=== PATIENT | male | born 1950 | race Caucasian/White ===

== ENCOUNTER 2018-08-13 01:40 | Emergency (ER) | payer BC, OTHER ==
[~2018-08-13] VITALS: Ht 185.4 cm; Wt 108.0 kg
[2018-08-13] MEDS ORDERED: DIAZEPAM 5 MG (VALIUM) TABLET PO ONE (02:00)
[2018-08-13] MEDS ORDERED: DEXAMETHASONE 4 MG/ML SDV (DECADRON) PO ONE (02:00)
[2018-08-13] MEDS ORDERED: oxyCODONE/APAP 5/325MG (PERCOCET 5) TABLET PO ONE (02:00)
[2018-08-13] MEDS ORDERED: KETOROLAC 60 MG/2 ML VIAL IM ONE (02:00)
--- NOTE | 2018-08-13 02:02 | ED General ---
General Chief Complaint: Back Problems Stated Complaint: BACK/RIGHT LEG PAIN History of Present Illness Date Seen by Provider: Aug 13, 2018 Time Seen by Provider: 01:58 Initial Comments Patient presents emergency department for evaluation of left lumbar paraspinal back pain that has been going on for the past 2 days and has been getting progressively worse. He says the pain radiates down the front of his right leg. He says it is worse with movements of his torso palpation. He says it can be present at rest as well. He denies any abdominal pain nausea vomiting weakness numbness tingling or bowel or bladder incontinence or saddle anesthesia. He says he has had sciatica before in the past but usually does not hurt this bad. He denies any vascular disease or aneurysms. He says he has tried Tylenol for pain and his last dose was approximately 8 hours ago with minimal relief. He says he suffered a trauma 5 years ago landing on the right side of his back and has had intermittent symptoms like this for years. His chiropractor told him he has a herniated disc but he thinks his last MRI was 5 years ago. Allergies and Home Medications Allergies Coded Allergies: Penicillins (Verified Allergy, Severe, 08/13/18) Home Medications Hydrocodone/Acetaminophen 1 Each Tablet, 1 TAB PO Q4-6HR Prescribed by: DEVIKA DE LA O on 08/13/18204 Lidocaine 1 Each Adh..patch, 1 EACH TP TID Prescribed by: DEVIKA DE LA O on 08/13/18204 Patient Home Medication List Home Medication List Reviewed: Yes Review of Systems Review of Systems Constitutional: no symptoms reported EENTM: no symptoms reported Respiratory: no symptoms reported Cardiovascular: no symptoms reported Gastrointestinal: no symptoms reported Genitourinary: no symptoms reported Musculoskeletal: back pain Psychiatric/Neurological: No Symptoms Reported Past Avwzuip-Wsrtqr-Cmoutm Hx Patient Social History Alcohol Use: Denies Use Recreational Drug Use: No 2nd Hand Smoke Exposure: No Recent Foreign Travel: No Contact w/Someone Who Travel: No Recent Hopitalizations: No Past Medical History Surgeries: No Respiratory: No Cardiac: Yes Hypertension Neurological: No Genitourinary: No Gastrointestinal: No Musculoskeletal: No Endocrine: No HEENT: No Cancer: No Psychosocial: No Integumentary: No Blood Disorders: No Physical Exam Vital Signs Vital Signs - First Documented 08/13/18 01:50 Temp 97.1 Pulse 63 Resp 16 B/P (MAP) 177/103 (127) Pulse Ox 97 O2 Delivery Room Air Capillary Refill : Height, Weight, BMI Height: '" Weight: lbs. oz. kg; BMI Method: General Appearance: No Apparent Distress, WD/WN HEENT: PERRL/EOMI Respiratory: Normal Breath Sounds, No Respiratory Distress Cardiovascular: Regular Rate, Rhythm Gastrointestinal: Non Tender, Soft Back: Other (L lumbar parspinal ttp. No midline ttp.) Extremity: Normal Capillary Refill Neurologic/Psychiatric: Alert, Oriented x3, No Motor/Sensory Deficits Skin: Normal Color, Warm/Dry Progress/Results/Core Measures Suspected Sepsis SIRS Temperature: Pulse: Respiratory Rate: Blood Pressure / Mean: Results/Orders My Orders Orders - DEVIKA DE LA O DO Ketorolac Injection (Toradol Injection) (08/13/18 02:00) Oxycodone/Apap 5/325mg Tablet (Percocet (08/13/18 02:00) Diazepam Tablet (Valium Tablet) (08/13/18 02:00) Dexamethasone Injection (Decadron Inject (08/13/18 02:00) Ketorolac Injection (Toradol Injection) (08/13/18 02:04) Oxycodone/Apap 5/325mg Tablet (Percocet (08/13/18 02:04) Diazepam Tablet (Valium Tablet) (08/13/18 02:04) Dexamethasone Injection (Decadron Inject (08/13/18 02:04) Medications Given in ED Current Medications Medications Dose Ordered Sig/Jass Route Start Time Stop Time Status Last Admin Dose Admin Dexamethasone Sodium Phosphate 8 mg ONCE ONCE PO 08/13/18 02:00 08/13/18 02:50 DC 08/13/18 02:17 8 MG Diazepam 5 mg ONCE ONCE PO 08/13/18 02:00 08/13/18 02:50 DC 08/13/18 02:17 5 MG Ketorolac Tromethamine 30 mg ONCE ONCE IM 08/13/18 02:00 08/13/18 02:50 DC 08/13/18 02:17 30 MG Oxycodone/ Acetaminophen 2 tab ONCE ONCE PO 08/13/18 02:00 08/13/18 02:50 DC 08/13/18 02:17 2 TAB Vital Signs/I&O 08/13/18 08/13/18 01:50 02:49 Temp 97.1 Pulse 63 60 Resp 16 18 B/P (MAP) 177/103 (127) 155/95 (115) Pulse Ox 97 98 O2 Delivery Room Air Room Air Capillary Refill : Progress Note : Progress Note Patient with lumbar pain with radiculopathy no signs of stone aneurysm or other acute surgical pathology. There is no red flag signs or symptoms necessitating emergent transfer for an MRI. Will give him Toradol Decadron Percocet and Valium and reassess. After treatment patient's pain improved and his repeat neurologic exam is normal. He was discharged on [place] and told to follow-up with his primary care provider later today and coming to the ED sooner with worsening pain weakness or incontinence saddle anesthesia or other general concerns. Patient aware and agreeable with plan and verbalized understanding of the above instructions. Departure Impression Primary Impression: Lumbar radiculopathy Additional Impression: Lumbar back pain Disposition: 01 HOME, SELF-CARE Condition: Stable Departure-Patient Inst. Referrals: SHANTELL JAFFE MD (PCP/Family) Primary Care Physician Patient Instructions: Radiculopathy (DC), Low Back Pain in Adults Scripts Hydrocodone/Acetaminophen ([place] 5-325 Tablet) 1 Each Tablet 1 TAB PO Q4-6HR for Pain MDD 10 TABS for 7 Days, #14 TAB Prov: DEVIKA DE LA O DO 08/13/18 Lidocaine (Aspercreme) 1 Each Adh..patch 1 EACH TP TID, #10 PATCH Prov: DEVIKA DE LA O DO 08/13/18 DEVIKA DE LA O DO Aug 13, 2018 02:02
[2018-08-13] MEDS ORDERED: oxyCODONE/APAP 5/325MG (PERCOCET 5) TABLET ONE (02:04)
[2018-08-13] MEDS ORDERED: DIAZEPAM 5 MG (VALIUM) TABLET ONE (02:04)
[2018-08-13] MEDS ORDERED: DEXAMETHASONE 4 MG/ML SDV (DECADRON) ONE (02:04)
[2018-08-13] MEDS ORDERED: KETOROLAC 30 MG/ML VIAL ONE (02:04)
[2018-08-13] MEDS ORDERED: LIDO1ADH44 TP (02:05)
[2018-08-13] MEDS ORDERED: HYDR-4226 PO (02:05)
[2018-08-13 02:49] VITALS: BP 155/95
== END 2018-08-13 02:50 | disposition home or self-care (01) ==
LOC: ER FS 01:44
DX: M54.16 Radiculopathy, lumbar region (principal); I10 Essential (primary) hypertension; Z88.0 Allergy status to penicillin
CPT/HCPCS: 99284

== ENCOUNTER 2020-09-20 06:51 | Emergency (ER) | payer BC ==
[~2020-09-20] VITALS: Ht 185.4 cm; Wt 106.8 kg
[~2020-09-20 06:51] MED LIST: HYDR-4226 PO; LIDO1ADH44 TP
--- NOTE | 2020-09-20 07:15 | ED Cough/URI ---
General Chief Complaint: Respiratory Problems Stated Complaint: LOW SAO2 Source: patient Exam Limitations: no limitations History of Present Illness Date Seen by Provider: Sep 20, 2020 Time Seen by Provider: 07:13 Initial Comments 69-year-old male presents with 3 weeks of cough and intermittent shortness of air. Treated empirically for Covid by his PCP, however has not been tested to confirm as he refused. No signif. PMHx. On home oxygen and says he has been running in the 's. Allergies and Home Medications Allergies Coded Allergies: Penicillins (Verified Allergy, Severe, 08/13/18) aluminum (Unverified Adverse Reaction, Unknown, 09/20/20) Home Medications Ivermectin 3 Mg Tablet, 21 MG PO DAILY PRN Prescribed by: MACI DAVE on 09/20/20 0938 Prednisone 20 Mg Tab, 60 MG PO DAILY take 7 po x 1 then 7 po 2 days later Prescribed by: MACI DAVE on 09/20/20 0938 Patient Home Medication List Home Medication List Reviewed: Yes Review of Systems Review of Systems Constitutional: No chills, No fever; malaise Respiratory: see HPI, cough, dyspnea on exertion; No hemoptysis, No orthopnea, No phlegm; short of breath; No stridor, No wheezing Cardiovascular: see HPI; No chest pain, No edema, No palpitations, No syncope Gastrointestinal: No abdominal pain, No constipation, No diarrhea, No loss of appetite, No nausea, No vomiting Musculoskeletal: No back pain, No joint pain Skin: No change in color, No rash Past Yhnaezi-Roeojm-Ltqjvu Hx Patient Social History Tobacco Use?: No Past Medical History Surgeries: No Respiratory: No Cardiac: Yes Hypertension Neurological: No Genitourinary: No Gastrointestinal: No Musculoskeletal: No Endocrine: No HEENT: No Cancer: No Psychosocial: No Integumentary: No Blood Disorders: No Physical Exam Vital Signs - First Documented 09/20/20 07:03 Temp 36.3 Pulse 88 Resp 19 B/P (MAP) 189/93 (125) Pulse Ox 93 O2 Delivery Room Air Capillary Refill : Height: 6'1.00" Weight: 238lbs. oz. 107.666894ak; BMI Method:Stated General Appearance: WD/WN, no apparent distress HEENT: PERRL/EOMI, normal ENT inspection Neck: non-tender, supple Respiratory: chest non-tender, lungs clear, normal breath sounds, no respiratory distress, no accessory muscle use Cardiovascular: regular rate, rhythm, no edema, no gallop, no JVD Gastrointestinal: non tender, soft Extremities: non-tender, normal inspection, no pedal edema, no calf tenderness Neurologic/Psychiatric: alert, normal mood/affect Skin: normal color, warm/dry Progress/Results/Core Measures Suspected Sepsis SIRS Temperature: Pulse: Respiratory Rate: Laboratory Tests 09/20/20 07:28: White Blood Count 9.9 Blood Pressure / Mean: Laboratory Tests 09/20/20 07:28: Creatinine 0.59L, Platelet Count 285, Total Bilirubin 0.8 Results/Orders Lab Results Laboratory Tests Test 09/20/20 07:28 Range/Units White Blood Count 9.9 4.3-11.0 10^3/uL Red Blood Count 4.61 4.35-5.85 10^6/uL Hemoglobin 14.1 13.3-17.7 G/DL Hematocrit 40 40-54 % Mean Corpuscular Volume 87 80-99 FL Mean Corpuscular Hemoglobin 31 25-34 PG Mean Corpuscular Hemoglobin Concent 35 32-36 G/DL Red Cell Distribution Width 13.6 10.0-14.5 % Platelet Count 285 130-400 10^3/uL Mean Platelet Volume 11.7 H 7.4-10.4 FL Immature Granulocyte % (Auto) 3 % Neutrophils (%) (Auto) 75 42-75 % Lymphocytes (%) (Auto) 12 12-44 % Monocytes (%) (Auto) 10 0-12 % Eosinophils (%) (Auto) 0 0-10 % Basophils (%) (Auto) 0 0-10 % Neutrophils # (Auto) 7.4 1.8-7.8 X 10^3 Lymphocytes # (Auto) 1.2 1.0-4.0 X 10^3 Monocytes # (Auto) 1.0 0.0-1.0 X 10^3 Eosinophils # (Auto) 0.0 0.0-0.3 10^3/uL Basophils # (Auto) 0.0 0.0-0.1 10^3/uL Immature Granulocyte # (Auto) 0.3 H 0.0-0.1 10^3/uL Sodium Level 137 135-145 MMOL/L Potassium Level 4.0 3.6-5.0 MMOL/L Chloride Level 102 98-107 MMOL/L Carbon Dioxide Level 22 21-32 MMOL/L Anion Gap 13 5-14 MMOL/L Blood Urea Nitrogen 14 7-18 MG/DL Creatinine 0.59 L 0.60-1.30 MG/DL Estimat Glomerular Filtration Rate 137 BUN/Creatinine Ratio 24 Glucose Level 190 H 70-105 MG/DL Calcium Level 8.7 8.5-10.1 MG/DL Corrected Calcium 9.1 8.5-10.1 MG/DL Total Bilirubin 0.8 0.1-1.0 MG/DL Aspartate Amino Transf (AST/SGOT) 22 5-34 U/L Alanine Aminotransferase (ALT/SGPT) 67 H 0-55 U/L Alkaline Phosphatase 89 40-136 U/L C-Reactive Protein 1.58 H <0.50 MG/DL Pro-B-Type Natriuretic Peptide 344.8 H <75.0 PG/ML Total Protein 6.8 6.4-8.2 GM/DL Albumin 3.5 3.2-4.5 GM/DL My Orders Orders - ROVENSTINE,MACI L DO Chest 1 View Ap/Pa Only (09/20/20 07:07) Ed Iv/Invasive Line Start (09/20/20 07:22) Cbc With Automated Diff (09/20/20 07:22) Comprehensive Metabolic Panel (09/20/20 07:22) Probnp Fs (09/20/20 07:22) Crp Fs (09/20/20 07:22) Vital Signs/I&O 09/20/20 07:03 Temp 36.3 Pulse 88 Resp 19 B/P (MAP) 189/93 (125) Pulse Ox 93 O2 Delivery Room Air Capillary Refill : Diagnostic Imaging Diagonstic Imaging: CT Plain Films/CT/US/NM/MRI: chest Comments Date of Exam:09/20/20 CHEST 1 VIEW AP/PA ONLY EXAMINATION: Chest 1 view HISTORY: SOA, COUGH COMPARISON: None available. FINDINGS: Heart size and pulmonary vasculature are normal. There are patchy nodular airspace opacities seen throughout both lungs. No pleural effusion or pneumothorax. The osseous structures are intact. IMPRESSION: 1. Patchy nodular airspace opacities seen throughout both lungs. These findings can be seen with a multifocal pneumonia but evaluation with a dedicated CT chest would be recommended to exclude underlying pulmonary nodules. Dictated by: Dictated on workstation # [id number] Dict: 09/20/20 0744 Trans: 09/20/20 075 [facility] [id number] Interpreted by: HEATHER WEAVER DO Electronically signed by: HEATHER WEAVER DO 09/20/20 0752 Departure Communication (Admissions) Time/Spoke to Consulting Phy: 09:[address] Smith who is patient's PCP, to discuss current lab and CXR fi ndings. Pt stable, does require oxygen at home and is set up accordingly. He agrees w Prednisone taper for a couple weeks and additional Ivermectin doses. Will see in follow up and advised to return to the ER if not improving or worse. Impression Primary Impression: Viral respiratory illness Disposition: HOME, SELF-CARE Condition: Stable Departure-Patient Inst. Decision time for Depature: 09:25 Referrals: LUIS MANUEL SMITH DO (PCP/Family) Primary Care Physician Patient Instructions: COVID-19 (DC) Add. Discharge Instructions: Continue your home OXYGEN therapy as well as your vitamins. Call Dr Smith's office today regarding any further recommendations All discharge instructions reviewed with patient and/or family. Voiced understanding. Scripts Ivermectin (Ivermectin) 3 Mg Tablet 21 MG PO DAILY PRN, #14 TAB Prov: MACI DAVE DO 09/20/20 Prednisone (Prednisone) 20 Mg Tab 60 MG PO DAILY, #30 TAB 0 Refills take 7 po x 1 then 7 po 2 days later Prov: MACI DAVE DO 09/20/20 MACI DAVE DO Sep 20, 2020 07:15
[2020-09-20] MEDS ORDERED: SIMV10TA26 (07:16)
[2020-09-20] MEDS ORDERED: DEXA4TAB (07:16)
[2020-09-20] MEDS ORDERED: FAMO40TA6 (07:16)
[2020-09-20] MEDS ORDERED: BUDE10.26 (07:16)
[2020-09-20 07:35] LABS: BASOPHILS % (AUTO) 0 % (0-10); EOSINOPHILS % (AUTO) 0 % (0-10); HEMATOCRIT 40 % (40-54); HEMOGLOBIN 14.1 G/DL (13.3-17.7); LYMPHOCYTES % (AUTO) 12 % (12-44); MEAN CORPUSCULAR HEMOGLOBIN 31 PG (25-34); MEAN CORPUSCULAR HGB CONC 35 G/DL (32-36); MEAN CORPUSCULAR VOLUME 87 FL (80-99); MEAN PLATELET VOLUME 11.7 FL (7.4-10.4); MONOCYTES % (AUTO) 10 % (0-12); NEUTROPHILS % (AUTO) 75 % (42-75); PLATELET COUNT 285 10^3/uL (130-400); WHITE BLOOD COUNT 9.9 10^3/uL (4.3-11.0)
[2020-09-20 07:36] LABS: LYMPHOCYTES # (AUTO) 1.2 X 10^3 (1.0-4.0); NEUTROPHILS # (AUTO) 7.4 X 10^3 (1.8-7.8)
--- NOTE | 2020-09-20 07:48 | Diagnostic Imaging Report ---
EXAMINATION: Chest 1 view HISTORY: SOA, COUGH COMPARISON: None available. FINDINGS: Heart size and pulmonary vasculature are normal. There are patchy nodular airspace opacities seen throughout both lungs. No pleural effusion or pneumothorax. The osseous structures are intact. IMPRESSION: 1. Patchy nodular airspace opacities seen throughout both lungs. These findings can be seen with a multifocal pneumonia but evaluation with a dedicated CT chest would be recommended to exclude underlying pulmonary nodules. Dictated by: Dictated on workstation # [id number]
[2020-09-20 08:06] LABS: BILIRUBIN,TOTAL 0.8 MG/DL (0.1-1.0); CALCIUM 8.7 MG/DL (8.5-10.1); CREATININE SERUM 0.59 MG/DL (0.60-1.30)
[2020-09-20 08:07] LABS: ALBUMIN 3.5 GM/DL (3.2-4.5); TOTAL PROTEIN 6.8 GM/DL (6.4-8.2)
[2020-09-20] MEDS ORDERED: IVER3TAB2 PO (09:38)
[2020-09-20] MEDS ORDERED: PRD20T PO (09:38)
[2020-09-20 10:02] VITALS: BP 185/102
== END 2020-09-20 10:02 | disposition home or self-care (01) ==
LOC: EDUNIT# 06:51 → ER FS 06:54
DX: B34.9 Viral infection, unspecified (principal); I10 Essential (primary) hypertension
CPT/HCPCS: 36415; 71045; 80053; 83880; 85025; 86141

== ENCOUNTER 2020-10-09 19:21 | Emergency (ER) | payer BC ==
[~2020-10-09] VITALS: Ht 185.4 cm; Wt 107.5 kg
[~2020-10-09 19:21] MED LIST changes: +BUDE10.26; +DEXA4TAB; +FAMO40TA6; +IVER3TAB2 PO; +PRD20T PO; +SIMV10TA26
--- NOTE | 2020-10-09 19:30 | ED General ---
General Stated Complaint: BACK PAIN/SOA History of Present Illness Date Seen by Provider: Oct 09, 2020 Time Seen by Provider: 19:30 Initial Comments 70-year-old male presents with left mid back pain. Patient was on a riding lawnmower when he went to load on a trailer and rolled backwards on top of him. Patient was pinned under the mower for a while. It did not completely lay on him due to rollbar being partially protective. Patient has pain with deep breath on the left side. Patient has no other complaints of pain. When EMS arrived they report he initially had a little bit of a low O2 saturation but upon arrival it was in the upper 90s. Patient was not given anything and does not want any pain medicine at this time. He did not hit his head, or lose consciousness. Allergies and Home Medications Allergies Coded Allergies: Penicillins (Verified Allergy, Severe, 08/13/18) aluminum (Unverified Adverse Reaction, Unknown, 09/20/20) Home Medications Cyclobenzaprine HCl 10 Mg Tablet, 10 MG PO Q8H PRN for SPASMS Prescribed by: ADELINA SU on 10/09/202132 Hydrocodone/Acetaminophen 1 Each Tablet, 1 TAB PO Q8H PRN for PAIN-MODERATE (5- 7) Prescribed by: ADELINA SU on 10/09/202152 Ivermectin 3 Mg Tablet, 21 MG PO DAILY PRN Prescribed by: MACI DAVE on 09/20/20 0938 Prednisone 20 Mg Tab, 60 MG PO DAILY take 7 po x 1 then 7 po 2 days later Prescribed by: MACI DAVE on 09/20/20 0938 Patient Home Medication List Home Medication List Reviewed: Yes Review of Systems Review of Systems Constitutional: no symptoms reported EENTM: no symptoms reported Respiratory: see HPI Cardiovascular: no symptoms reported Gastrointestinal: no symptoms reported Genitourinary: no symptoms reported Musculoskeletal: see HPI Skin: no symptoms reported Psychiatric/Neurological: No Symptoms Reported Hematologic/Lymphatic: No Symptoms Reported Past Ropfwlm-Qjkpwx-Pwfmmq Hx Past Medical History Surgery/Hospitalization HX: Torn meniscus, R Rotator cuff Surgeries: No Respiratory: No Cardiac: Yes Hypertension Neurological: No Genitourinary: No Gastrointestinal: No Musculoskeletal: No Endocrine: No HEENT: No Cancer: No Psychosocial: No Integumentary: No Blood Disorders: No Physical Exam Vital Signs Vital Signs - First Documented 10/09/20 19:28 Temp 36.5 Pulse 87 Resp 16 B/P (MAP) 145/78 (100) Pulse Ox 93 O2 Delivery Room Air Capillary Refill : Height, Weight, BMI Height: 6'1.00" Weight: 238lbs. oz. 107.140200fg; 31.00 BMI Method:Stated General Appearance: Mild Distress HEENT: PERRL/EOMI, Pharynx Normal Neck: Full Range of Motion, Non Tender Respiratory: Lungs Clear, Normal Breath Sounds Cardiovascular: Regular Rate, Rhythm, No Edema Back: No Vertebral Tenderness; Other (Tenderness left lateral chest wall/back around ribs 5 through 8) Extremity: Normal Capillary Refill, Normal Inspection Neurologic/Psychiatric: Alert, Oriented x3, No Motor/Sensory Deficits, Normal Mood/Affect, bioinformatics analyst II-XII Norm as Tested Skin: Normal Color Progress/Results/Core Measures Suspected Sepsis SIRS Temperature: Pulse: Respiratory Rate: Blood Pressure / Mean: Results/Orders My Orders Orders - ADELINA SU DO Ribs/Unilateral With Chest (10/09/20 19:29) Ct Thoracic Spine Wo (10/09/20 19:29) Orphenadrine Inj (Ed Only) (Norflex Inje (10/09/20 21:31) Vital Signs/I&O 10/09/20 10/09/20 19:28 21:38 Temp 36.5 Pulse 87 82 Resp 16 20 B/P (MAP) 145/78 (100) 136/74 Pulse Ox 93 96 O2 Delivery Room Air Room Air Capillary Refill : Progress Note : Progress Note Patient with likely seventh rib fracture due to tenderness on physical exam. Patient with probable rib contusions of the surrounding ribs. Patient was offered pain medication in the ER but declined. He was given Norflex to help with the muscle spasms. We will provide him with a prescription for Norflex and hydrocodone. Patient should follow-up with his primary care provider as needed or return to the ER with worsening shortness of breath or any other concerns. Patient stable and discharged home Diagnostic Imaging Diagonstic Imaging: CT Comments CT THORACIC SPINE WO PROCEDURE: CT thoracic spine without contrast. TECHNIQUE: Multiple axial computerized tomography images were obtained from the base of the thoracic spine to the vertex without intravenous contrast. Auto Exposure Controls were utilized during the CT exam to meet ALARA standards for radiation dose reduction. INDICATION: Pain post trauma. CORRELATION STUDY: None. FINDINGS: There is compression deformity of the superior L2 endplate with loss of approximately 50% vertebral body height. Age indeterminate but appears to be nonacute. Schmorl's node deformity in the superior L1 and L3 endplate. In the thoracic vertebral bodies, there are several small Schmorl's node deformities, most noticeable at T11 and T12. An acute compression deformity of the thoracic spine is not present with thoracic vertebral body heights overall maintained. Various degrees of disc space narrowing are present. Minimal endplate lipping is noted with some bridging osteophytes of the mid thoracic spine. There is no osseous encroachment or narrowing of the spinal canal and/or neural foramina. Posterior elements appear to be in normal alignment. The partially visualized posterior ribs are intact. Heart size is enlarged. There is groundglass opacities throughout both lung mehta could be edema versus pneumonia. No visualized moustapha lobar consolidation. No visualized pneumothorax or significant effusion. Indeterminate low-density mass in the left kidney, approximately 2 cm in size. Bilateral small nonobstructing renal stones. IMPRESSION: 1. No findings to suggest acute bony abnormality about the thoracic spine. Advanced thoracic spondylosis is present. 2. Cardiac enlargement. Bilateral pulmonary groundglass opacities could reflect edema versus an underlying multilobe pneumonia. This would include potential for Covid pneumonia. 3. Nonobstructing bilateral renal stones. Indeterminate low-density mass in left kidney. Follow-up initially with ultrasound imaging and/or perhaps postcontrast enhanced CT imaging on a nonemergent basis recommended. Reviewed: Reviewed by Me, Reviewed/Discussed Diagonstic Imaging: Xray Comments RIBS/UNILATERAL WITH CHEST INDICATION: Trauma. TECHNIQUE: Single view chest along with three views of the left ribs, 8:02 PM. CORRELATION STUDY: None. FINDINGS: Heart size and mediastinum are mildly prominent. Vasculature is slightly increased. Lung mehta overall are generally clear and without definitive consolidating infiltrate. No effusion or pneumothorax. Slight cortical irregularity of left posterior lateral 6th and 7th ribs favors more remote injury. Findings are suspect for a subtle nondisplaced anterior left rib 7 fracture. IMPRESSION: 1. Negative for acute cardiopulmonary abnormality. 2. Suspect subtle nondisplaced anterior left rib 7 fracture. Reviewed: Reviewed by Me, Reviewed/Discussed Departure Impression Primary Impression: Fracture of rib of left side Qualified Codes: S22.32XA - Fracture of one rib, left side, initial encounter for closed fracture Disposition: 01 HOME, SELF-CARE Condition: Stable Departure-Patient Inst. Referrals: LUIS MANUEL GOMEZ DO (PCP/Family) Primary Care Physician Patient Instructions: Rib Fracture or Bruised Rib ED Add. Discharge Instructions: 4% topical lidocaine with menthol cream, gel or patch use as directed on package Scripts Hydrocodone/Acetaminophen (Hydrocodone-Acetamin 5-325 mg) 1 Each Tablet 1 TAB PO Q8H PRN for PAIN-MODERATE (5-7), #5 TAB Prov: ADELINA SU DO 10/09/20 Cyclobenzaprine HCl (Cyclobenzaprine HCl) 10 Mg Tablet 10 MG PO Q8H PRN for SPASMS, #15 TAB 0 Refills Prov: ADELINA SU DO 10/09/20 ADELINA SU DO Oct 09, 2020 19:30
--- NOTE | 2020-10-09 20:20 | Diagnostic Imaging Report ---
INDICATION: Trauma. TECHNIQUE: Single view chest along with three views of the left ribs, 8:02 PM. CORRELATION STUDY: None. FINDINGS: Heart size and mediastinum are mildly prominent. Vasculature is slightly increased. Lung mehta overall are generally clear and without definitive consolidating infiltrate. No effusion or pneumothorax. Slight cortical irregularity of left posterior lateral 6th and 7th ribs favors more remote injury. Findings are suspect for a subtle nondisplaced anterior left rib 7 fracture. IMPRESSION: 1. Negative for acute cardiopulmonary abnormality. 2. Suspect subtle nondisplaced anterior left rib 7 fracture. Dictated by: Dictated on workstation # [id number]
--- NOTE | 2020-10-09 21:05 | Diagnostic Imaging Report ---
PROCEDURE: CT thoracic spine without contrast. TECHNIQUE: Multiple axial computerized tomography images were obtained from the base of the thoracic spine to the vertex without intravenous contrast. Auto Exposure Controls were utilized during the CT exam to meet ALARA standards for radiation dose reduction. INDICATION: Pain post trauma. CORRELATION STUDY: None. FINDINGS: There is compression deformity of the superior L2 endplate with loss of approximately 50% vertebral body height. Age indeterminate but appears to be nonacute. Schmorl's node deformity in the superior L1 and L3 endplate. In the thoracic vertebral bodies, there are several small Schmorl's node deformities, most noticeable at T11 and T12. An acute compression deformity of the thoracic spine is not present with thoracic vertebral body heights overall maintained. Various degrees of disc space narrowing are present. Minimal endplate lipping is noted with some bridging osteophytes of the mid thoracic spine. There is no osseous encroachment or narrowing of the spinal canal and/or neural foramina. Posterior elements appear to be in normal alignment. The partially visualized posterior ribs are intact. Heart size is enlarged. There is groundglass opacities throughout both lung mehta could be edema versus pneumonia. No visualized moustapha lobar consolidation. No visualized pneumothorax or significant effusion. Indeterminate low-density mass in the left kidney, approximately 2 cm in size. Bilateral small nonobstructing renal stones. IMPRESSION: 1. No findings to suggest acute bony abnormality about the thoracic spine. Advanced thoracic spondylosis is present. 2. Cardiac enlargement. Bilateral pulmonary groundglass opacities could reflect edema versus an underlying multilobe pneumonia. This would include potential for Covid pneumonia. 3. Nonobstructing bilateral renal stones. Indeterminate low-density mass in left kidney. Follow-up initially with ultrasound imaging and/or perhaps postcontrast enhanced CT imaging on a nonemergent basis recommended. Dictated by: Dictated on workstation # [id number]
[2020-10-09] MEDS ORDERED: ORPHENADRINE 60 MG/2 ML (NORFLEX) AMP (ED ONLY) IM STA (21:31)
[2020-10-09] MEDS ORDERED: CYCL10TA9 PO (21:33)
[2020-10-09 21:38] VITALS: BP 136/74
[2020-10-09] MEDS ORDERED: ACHD5005 PO (21:52)
== END 2020-10-09 21:38 | disposition home or self-care (01) ==
LOC: EDUNIT# 19:21 → ER FS 19:25
DX: S22.32XA Fracture of one rib, left side, initial encounter for closed fracture (principal); I10 Essential (primary) hypertension; W20.8XXA Other cause of strike by thrown, projected or falling object, initial encounter
CPT/HCPCS: 71101; 72128

== ENCOUNTER → 2020-11-30 | Outpatient (CLI) | payer BC ==
[~2020-11-30] MED LIST changes: +ACHD5005 PO; +CATHETER FLUSH 10 ML SYR IV PRN; +CYCL10TA9 PO; +HOLD METFORMIN - RECEIVED CONTRAST 20 ML VIAL IV SCH; +IOHEXOL 350 MG/ML 100 ML (OMNIPAQUE 350) VIAL IV ONE; +NS 100 ML (IVPB) BAG IV ONE
[2020-11-30 13:08] LABS: CREATININE SERUM 0.76 MG/DL (0.60-1.30)
--- NOTE | 2020-11-30 15:22 | Diagnostic Imaging Report ---
PROCEDURE: MR imaging of the brain without contrast. TECHNIQUE: Multiplanar, multisequence MR imaging of the brain was performed without contrast. INDICATION: History of trauma. Now with speech difficulty. COMPARISON: None. FINDINGS: The ventricles and the cortical sulci age-appropriate. There is no midline shift or mass effect identified. There is no acute infarction. No intraparenchymal or extraaxial hemorrhage or fluid collection is identified. There is no focal parenchymal abnormality seen. There is no focal mass seen. The midline craniocervical anatomy is unremarkable. The major expected intracranial flow voids are seen. There are no focal calvarial lesions. The visualized paranasal sinuses are unremarkable. The mastoid air cells are clear. IMPRESSION: 1. No acute intracranial abnormalities. No acute infarction, acute intra-axial hemorrhage or focal intra-axial mass. Dictated by: Dictated on workstation # [id number]
--- NOTE | 2020-11-30 16:43 | Diagnostic Imaging Report ---
PROCEDURE: CT abdomen and pelvis with contrast. TECHNIQUE: Multiple contiguous axial images were obtained through the abdomen and pelvis after administration of intravenous contrast. Auto Exposure Controls were utilized during the CT exam to meet ALARA standards for radiation dose reduction. All CT scans use one or more of the following dose optimizing techniques: automated exposure control, MA and/or KvP adjustment based on patient size and exam type or iterative reconstruction. INDICATION: Lawnmower crush injury. COMPARISON: None FINDINGS: Included portions of the lung bases are clear. CT ABDOMEN: Normal appendix cannot be adequately identified, but there is no pericecal inflammation. Small bowel loops are nondistended. There are punctate bilateral nonobstructive renal calculi. 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 Otherwise, kidneys, adrenal glands, spleen, pancreas, and liver have a normal CT appearance. No acute solid organ injury is identified. There is mild generalized stranding of the mesenteric fat. A few scattered subcentimeter mesenteric lymph nodes are noted. No abnormal retroperitoneal adenopathy is seen. There is no loculated fluid collection, free fluid or free air. Evaluation of the osseous structures demonstrates acute T10 fracture. There is horizontally oriented fracture through the mid and inferior margins of the T10 vertebral body. There does appear to be extension into the anterior vertebral body wall. There is no extension into the posterior vertebral body wall. As a result, there is approximately 30% vertebral body height loss. Note is also made of a nondisplaced fracture through the posterior spinous process of T10 within the axial plane. Pedicles and lamina appear to be intact. CT PELVIS: Urinary bladder is grossly unremarkable. There is no loculated fluid collection, free fluid or free air within the pelvis. No abnormal lymph nodes are seen. Osseous structures show no acute abnormalities. IMPRESSION: 1. Mild generalized stranding of the mesenteric fat. Findings are nonspecific, but may relate to mesenteric panniculitis/adenitis. Edema related to abdominal trauma is not entirely excluded. 2. Acute T10 fracture, as described above. 3. Punctate bilateral nonobstructive renal calculi. 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 Message given to Dr. Smith at 4:42 PM 11/30/2020/cb Dictated by: Dictated on workstation # [id number]
== END ==
LOC: RAD 13:15
PROVIDERS: ATTEND Emergency Medicine
DX: S22.071A Stable burst fracture of T9-T10 vertebra, initial encounter for closed fracture (principal); N20.2 Calculus of kidney with calculus of ureter; D49.512 Neoplasm of unspecified behavior of left kidney; G31.84 Mild cognitive impairment of uncertain or unknown etiology; W23.0XXA Caught, crushed, jammed, or pinched between moving objects, initial encounter
CPT/HCPCS: 36415; 70551; 74177; 82565; 84520

== ENCOUNTER 2022-08-23 21:04 | Emergency (ER) | payer BC ==
[~2022-08-23] VITALS: Ht 185.5 cm; Wt 111.3 kg
[~2022-08-23 21:04] MED LIST changes: -CATHETER FLUSH 10 ML SYR IV PRN; +CYCL10TA25 PO; -CYCL10TA9 PO; -HOLD METFORMIN - RECEIVED CONTRAST 20 ML VIAL IV SCH; -IOHEXOL 350 MG/ML 100 ML (OMNIPAQUE 350) VIAL IV ONE; -NS 100 ML (IVPB) BAG IV ONE
[2022-08-23 21:20] VITALS: BP 162/83
[2022-08-23 21:23] LABS: BILIRUBIN,URINE NEGATIVE (NEGATIVE); CLARITY,URINE CLOUDY; COLOR,URINE YELLOW; GLUCOSE, URINE (UA) NEGATIVE (NEGATIVE); KETONES,URINE NEGATIVE (NEGATIVE); LEUKOCYTE ESTERASE ,URINE NEGATIVE (NEGATIVE); NITRITE,URINE NEGATIVE (NEGATIVE); PH,URINE 6.5 (5-9); PROTEIN,URINE NEGATIVE (NEGATIVE)
--- NOTE | 2022-08-23 21:28 | ED GU-Male ---
General Chief Complaint: - Reproductive Stated Complaint: DARK URINE,LOWER BACK PAIN,LETHARGIC Nursing Triage Note: Pt presents with c/o dark urine, low back pain and feeling weak. Pt reports he's not been drinking as much water as he usually does. Source: patient Exam Limitations: no limitations History of Present Illness Date Seen by Provider: Aug 23, 2022 Time Seen by Provider: 21:19 Initial Comments 71-year-old male presents for dark urine and low back pain. He states he usually drinks a gallon and a half of water a day and has not been doing that. With beginning of the week his urine was dark, he started drinking more water to start clearing up but it started darkening again the last few days. Symptoms overall been present for about 1 week. He does complain of some bilateral low back cramping. No fevers or chills. No changes in bowels. All other systems reviewed and negative except documented per HPI. Voice recognition software was used to help create this chart Allergies and Home Medications Allergies Coded Allergies: Penicillins (Verified Allergy, Severe, 08/13/18) aluminum (Unverified Adverse Reaction, Unknown, 09/20/20) Patient Home Medication List Home Medication List Reviewed: Yes Budesonide/Formoterol Fumarate (Budesonide-Formoterol 160-4.5) 10.2 Gm Hfa.aer.ad, (Reported) Entered as Reported by: ALBERTO MA on 09/20/20715 Cyclobenzaprine HCl (Cyclobenzaprine HCl) 10 Mg Tablet, 10 MG PO Q8H PRN for SPASMS Prescribed by: ADELINA SU on 10/09/202132 Dexamethasone (Dexamethasone) 4 Mg Tablet, (Reported) Entered as Reported by: ALBERTO MA on 09/20/20715 Famotidine (Famotidine) 40 Mg Tablet, (Reported) Entered as Reported by: ALBERTO MA on 09/20/20715 Hydrocodone/Acetaminophen (Hydrocodone-Acetamin 5-325 mg) 1 Each Tablet, 1 TAB PO Q8H PRN for PAIN-MODERATE (5-7) Prescribed by: ADELINA SU on 10/09/202152 Ivermectin (Ivermectin) 3 Mg Tablet, 21 MG PO DAILY PRN Prescribed by: MACI DAVE on 09/20/20 0938 Prednisone (Prednisone) 20 Mg Tab, 60 MG PO DAILY Prescribed by: MACI PHANSTINE on 09/20/20 0938 Simvastatin (Simvastatin) 10 Mg Tablet, (Reported) Entered as Reported by: ALBERTO MA on 09/20/20 0716 Review of Systems Review of Systems Constitutional: see HPI Past Vgokmkw-Hcmjch-Wrcyvb Hx Patient Social History Use of E-Cig and/or Vaping dev: No Substance use?: No Alcohol Use?: No Past Medical History Surgery/Hospitalization HX: Torn meniscus, R Rotator cuff Surgeries: No Respiratory: No Cardiac: Yes Hypertension Neurological: No Genitourinary: No Gastrointestinal: No Musculoskeletal: No Endocrine: No HEENT: No Cancer: No Psychosocial: No Integumentary: No Blood Disorders: No Physical Exam Vital Signs Vital Signs - First Documented 08/23/22 21:20 Temp 36.6 Pulse 69 Resp 16 B/P (MAP) 162/83 (109) Capillary Refill : Less Than 3 Seconds Height, Weight, BMI Height: 6'1.00" Weight: 238lbs. oz. 107.961190mx; 32.00 BMI Method:Stated General Appearance: WD/WN, no apparent distress HEENT: normal ENT inspection, pharynx normal Neck: non-tender, full range of motion, supple, normal inspection Cardiovascular: regular rate, rhythm, no murmur Respiratory: chest non-tender, lungs clear, normal breath sounds, no respiratory distress, no accessory muscle use Gastrointestinal: normal bowel sounds, non tender, soft, no organomegaly Neurologic/Psychiatric: alert, oriented x 3 Skin: normal color, warm/dry Progress/Results/Core Measures Suspected Sepsis SIRS Temperature: Pulse: 69 Respiratory Rate: 16 Blood Pressure 162 /83 Mean: 109 Results/Orders Lab Results Laboratory Tests Test 08/23/22 21:10 Range/Units Urine Color YELLOW Urine Clarity CLOUDY Urine pH 6.5 5-9 Urine Specific L[place] 1.015 L 1.016-1.022 Urine Protein NEGATIVE NEGATIVE Urine Glucose (UA) NEGATIVE NEGATIVE Urine Ketones NEGATIVE NEGATIVE Urine Nitrite NEGATIVE NEGATIVE Urine Bilirubin NEGATIVE NEGATIVE Urine Urobilinogen 0.2 < = 1.0 MG/DL Urine Leukocyte Esterase NEGATIVE NEGATIVE Urine RBC (Auto) 2+ H NEGATIVE Urine RBC >100 H /HPF Urine WBC NONE /HPF Urine Squamous Epithelial Cells NONE /HPF Urine Crystals NONE /LPF Urine Bacteria NEGATIVE /HPF Urine Casts NONE /LPF Urine Mucus NEGATIVE /LPF Urine Culture Indicated NO My Orders Orders - MAX VIZCAINO DO Ua Culture If Indicated (08/23/22 21:13) Vital Signs/I&O 08/23/22 21:20 Temp 36.6 Pulse 69 Resp 16 B/P (MAP) 162/83 (109) Capillary Refill : Less Than 3 Seconds Blood Pressure Mean: 109 Departure Communication (Admissions) The patient has asymptomatic hematuria. No evidence for infection at this time. No evidence for kidney stone in the symptoms or not consistent with that diagnosis. He does have a history of BPH but no other genitourinary issues. No indication for further emergent work-up at this time. Discharged in stable condition with urology follow-up. Impression Primary Impression: Hematuria Qualified Codes: R31.9 - Hematuria, unspecified Disposition: 01 HOME, SELF-CARE Condition: Stable Departure-Patient Inst. Referrals: LUIS MANUEL GOMEZ DO (PCP/Family) Primary Care Physician ANGELES COLES DO Patient Instructions: Blood in Urine (Hematuria), Adult ED Add. Discharge Instructions: You have a small amount of blood in your urine. It is unclear what this is from at this time however it does not appear to be from an emergent condition at this time. Call the urologist office to schedule follow-up appointment. Return to the emergency department for any severe concerns. All discharge instructions reviewed with patient and/or family. Voiced understanding. MAX VIZCAINO DO Aug 23, 2022 21:28
[2022-08-23 21:39] LABS: BACTERIA,URINE NEGATIVE /HPF; RBC,URINE >100 /HPF
== END 2022-08-23 21:56 | disposition home or self-care (01) ==
LOC: EDUNIT# 21:04 → ER FS 21:05
DX: R31.9 Hematuria, unspecified (principal)
CPT/HCPCS: 81000; 99282

== ENCOUNTER → 2022-08-28 | Outpatient (CLI) | payer BC ==
--- NOTE | 2022-08-28 13:18 | Diagnostic Imaging Report ---
PROCEDURE: CT abdomen and pelvis without contrast. TECHNIQUE: Multiple contiguous axial images were obtained through the abdomen and pelvis without the use of intravenous contrast. Auto Exposure Controls were utilized during the CT exam to meet ALARA standards for radiation dose reduction. INDICATION: Low back pain and hematuria. Comparison is made with prior CT from 11/30/2020. FINDINGS: The lung bases are clear. The liver and gallbladder are unremarkable. There is no biliary ductal dilatation. Pancreas and spleen are unremarkable. No adrenal mass is identified. There is a punctate nonobstructing calculus in the right kidney. There is also a punctate nonobstructing calculus in the lower pole of the left kidney. There is some [id number] left-sided hydroureteronephrosis. There is a 6 mm calculus in the mid left ureter. No right-sided ureteral calculi are seen. No bladder calculi are detected. Aorta is nonaneurysmal. Bowel loops are normal in caliber. There is diverticulosis of the descending and sigmoid colon, but no evidence of acute diverticulitis. Prostate is enlarged. There is a fat-containing left inguinal hernia. There is no ascites. IMPRESSION: 1. Bilateral nonobstructing nephrolithiasis. In addition, there is an approximately 5-6 mm mid left ureteric calculus producing mild hydroureteronephrosis. 2. Uncomplicated diverticulosis. 3. Prostatomegaly. 4. Fat-containing left inguinal hernia. Dictated by: Dictated on workstation # [id number]
== END ==
LOC: RAD 11:52
PROVIDERS: ATTEND Emergency Medicine
DX: N20.0 Calculus of kidney (principal); K57.92 Diverticulitis of intestine, part unspecified, without perforation or abscess without bleeding; K40.90 Unilateral inguinal hernia, without obstruction or gangrene, not specified as recurrent; M54.50 Low back pain, unspecified
CPT/HCPCS: 74176